=== PATIENT | female | born 1975 | race Caucasian/White ===

== ENCOUNTER 2019-12-20 14:29 | Observation (INO) ==
--- NOTE | 2019-12-20 15:06 | Emergency Department Note ---
History of Present Illness General Chief complaint: Chest Pain Stated complaint: CHEST PAIN Time Seen by Provider: 12/20/19 14:48 Source: patient History of Present Illness Provider complaint: Chest pain Onset (ago): day(s) Location: chest and left Radiation: neck Pain Consistency: + intermittent Maximum Pain Intensity: 4 Quality: + other (Squeezing and tightness) Exacerbated By: + other (Exertion) Associated symptoms: + shortness of breath; no cough, no fever/chills and no nausea/vomiting This is a 44-year-old female who presents with chest pain. She describes it as a squeezing tight sensation on the left side of her chest. Today it started radiating into her neck. She noticed that 2 days ago she had pain in the left shoulder which then seemed to come down into her chest. She had tingling to her left hand as well. The pain in her chest is worse with exertion such as climbing the stairs. It is associated with shortness of breath. She currently has no chest discomfort. Her pain is intermittent. She denies any fever, cough or cold symptoms, abdominal pain, vomiting, diarrhea, loss of taste or smell, leg swelling or pain or known exposure to COVID-19. The patient does have a history of lupus but denies any history of PE or DVT. She denies any immobilization or leg swelling or pain. She does not take control. She does have a strong family history of heart disease. She states her brother had triple bypass and he is 47 years old. Her grandparents from both sides of the family had heart attacks in their 40s. Home Medications Home Medications Medication Instructions Recorded Confirmed Type amlodipine 2.5 mg tablet 2.5 mg PO HS 05/08/19 12/20/19 History atorvastatin 20 mg tablet 20 mg PO HS 05/08/19 12/20/19 History loratadine 10 mg tablet 10 mg PO QAM 05/08/19 12/20/19 History multivitamin 1 tab PO QAM 05/08/19 12/20/19 History belimumab [Benlysta] 200 mg SUBCUT TU 12/20/19 12/20/19 History turmeric 400 mg PO QAM 12/20/19 12/20/19 History Allergies Allergy/AdvReac Type Severity Reaction Status Date / Time codeine AdvReac Mild VOMITING Verified 10/14/20 16:07 Past Med/Surg History Medical History Asthma Congenital dysplasia of left hip Hypercholesterolemia Lupus (systemic lupus erythematosus) Surgical History No pertinent past surgical history Social History Smoking Status: Never smoker Feels Safe at Home: Yes Review of Systems See HPI for pertinent positives & negatives. and A total of 10 systems reviewed and were otherwise negative Physical Exam Vital Signs Vital Signs - 24 hr 12/20/19 14:32 12/20/19 14:52 12/20/19 14:55 Temperature 37.5 C Temperature Source Oral Pulse Rate 94 H 93 H 86 Pulse Rate from SpO2 Sensor 93 H 86 Respiratory Rate 18 22 20 Respiratory Effort / Characteristics Non-Labored Spontaneous Respiratory Depth Normal Blood Pressure 169/89 H 141/83 H Blood Pressure Mean 115 86 Pulse Oximetry 98 98 98 Oxygen Delivery Method Room Air Sepsis Recent Fever Within 48 Hours No Sepsis New/Unexplained Change in Mental Status No Sepsis Action Taken by Nursing No Action Required 12/20/19 15:00 12/20/19 15:01 12/20/19 15:02 Temperature Temperature Source Pulse Rate 97 H 96 H Pulse Rate from SpO2 Sensor 95 H 94 H Respiratory Rate 18 21 Respiratory Effort / Characteristics Respiratory Depth Blood Pressure 119/81 Blood Pressure Mean 95 Pulse Oximetry 95 97 98 Oxygen Delivery Method Room Air Sepsis Recent Fever Within 48 Hours Sepsis New/Unexplained Change in Mental Status Sepsis Action Taken by Nursing Constitutional: Vital signs reviewed. Eyes: Pupils are equal round reactive to light. Conjunctiva are noninjected. ENT: Pharynx is clear without erythema or exudate. Mucous membranes are moist. Neck supple without meningeal signs. Respiratory: Clear to auscultation bilaterally. Breath sounds are equal bilaterally. Cardiovascular: Regular rate and rhythm. No rubs or gallops. GI: Soft, nondistended and nontender. Bowel sounds are present. Musculoskeletal: No peripheral edema. No lower extremity tenderness. Integumentary: No cyanosis. or jaundice. Neurological: The patient is awake and alert. No focal deficits. Psychiatric: Normal affect. Not anxious appearing. Course Administered Medications Discontinued Medications Aspirin (Aspirin Chew 324 Mg) 324 mg PO NOW STA Stop: 12/20/19 16:18 Last Admin: 12/20/19 16:28 Dose: 324 mg Documented by: [id number] Nitroglycerin (Nitroglycerin 2% Ointment 30gm Tube) 0.5 inch EXT NOW ONE Stop: 12/20/19 16:18 Last Admin: 12/20/19 16:28 Dose: 0.5 inch Documented by: [id number] Medical Decision Making Differential Diagnosis Unstable angina, NM, pleurisy, GERD, pericarditis Medical Records Attestation: I reviewed the patient's medical records. I did perform a limited focused review of portions of the patient's old chart on the electronic medical record. The patient has had no recent pertinent visits to this hospital. She did have a negative COVID-19 test last month. Home Medications Current Medication List: was personally reviewed by me Laboratory Data Attestation: I reviewed the patient's lab results. Result diagrams: 12/20/19 14:45 12/20/19 14:45 Lab Results 12/20/19 12/20/19 12/20/19 Range/Units 14:45 14:45 14:45 WBC 8.61 (4.8-10.8) K/uL RBC 4.77 (4.2-5.4) M/uL Hgb 14.9 (12.0-16.0) g/dL Hct 44.5 (37-47) % MCV 93.3 (80-100) fL MCH 31.2 (25-34) pg MCHC 33.5 (32-36) g/dL RDW Std Deviation 41.7 (36.4-46.3) fL RDW Coeff of Teodoro 12.2 (11.5-14.5) % Plt Count 262 (130-400) K/uL MPV 10.9 H (7.4-10.4) fL Immature Gran % (Auto) 0.0 % Neut % (Auto) 69.7 % Lymph % (Auto) 22.0 % [place] % (Auto) 6.9 % Eos % (Auto) 1.2 % Baso % (Auto) 0.2 % Neut # (Auto) 6.01 (1.4-6.5) K/uL Lymph # (Auto) 1.89 (1.2-3.4) K/uL [place] # (Auto) 0.59 (0.11-0.59) K/uL Eos # (Auto) 0.10 (0-0.5) K/uL Baso # (Auto) 0.02 (0-0.2) K/uL Immature Gran # (Auto) 0.00 (0.00-0.02) K/uL PT 10.7 (9.0-12.0) Seconds INR 1.0 (0.9-1.1) APTT 27.3 (21.0-31.0) Seconds PTT Ratio 1.0 Sodium (136-145) mmol/L Potassium (3.5-5.1) mmol/L Chloride (98-107) mmol/L Carbon Dioxide (21-32) mmol/L Anion Gap (3-11) BUN (7-18) mg/dl Creatinine (0.6-1.2) mg/dl Est Cr Clr Drug Dosing ml/min Est GFR ( Amer) Est GFR (Non-Af Amer) BUN/Creatinine Ratio (10-20) Glucose (70-99) mg/dl Calcium (8.5-10.1) mg/dl Total Bilirubin (0.2-1) mg/dl AST (15-37) U/L ALT (12-78) U/L Alkaline Phosphatase (45-117) U/L Troponin I < 0.015 (0-0.045) ng/ml Total Protein (6.4-8.2) gm/dl Albumin (3.4-5.0) gm/dl Globulin (2.5-4.0) gm/dl Albumin/Globulin Ratio (0.9-2) 12/19/20 Range/Units 14:45 WBC (4.8-10.8) K/uL RBC (4.2-5.4) M/uL Hgb (12.0-16.0) g/dL Hct (37-47) % MCV (80-100) fL MCH (25-34) pg MCHC (32-36) g/dL RDW Std Deviation (36.4-46.3) fL RDW Coeff of Teodoro (11.5-14.5) % Plt Count (130-400) K/uL MPV (7.4-10.4) fL Immature Gran % (Auto) % Neut % (Auto) % Lymph % (Auto) % [place] % (Auto) % Eos % (Auto) % Baso % (Auto) % Neut # (Auto) (1.4-6.5) K/uL Lymph # (Auto) (1.2-3.4) K/uL [place] # (Auto) (0.11-0.59) K/uL Eos # (Auto) (0-0.5) K/uL Baso # (Auto) (0-0.2) K/uL Immature Gran # (Auto) (0.00-0.02) K/uL PT (9.0-12.0) Seconds INR (0.9-1.1) APTT (21.0-31.0) Seconds PTT Ratio Sodium 141 (136-145) mmol/L Potassium 3.7 (3.5-5.1) mmol/L Chloride 109 H (98-107) mmol/L Carbon Dioxide 27 (21-32) mmol/L Anion Gap 5.0 (3-11) BUN 14 (7-18) mg/dl Creatinine 0.74 (0.6-1.2) mg/dl Est Cr Clr Drug Dosing 115.0 ml/min Est GFR ( Amer) 114.2 Est GFR (Non-Af Amer) 98.5 BUN/Creatinine Ratio 18.4 (10-20) Glucose 140 H (70-99) mg/dl Calcium 8.9 (8.5-10.1) mg/dl Total Bilirubin 0.3 (0.2-1) mg/dl AST 13 L (15-37) U/L ALT 17 (12-78) U/L Alkaline Phosphatase 75 (45-117) U/L Troponin I (0-0.045) ng/ml Total Protein 7.0 (6.4-8.2) gm/dl Albumin 3.1 L (3.4-5.0) gm/dl Globulin 3.9 (2.5-4.0) gm/dl Albumin/Globulin Ratio 0.8 L (0.9-2) Imaging Data Radiologist's Impression: SINGLE VIEW CHEST CLINICAL HISTORY: Atypical chest pain. FINDINGS: An AP, portable, upright chest radiograph is obtained. No prior studies are available for comparison at the time of dictation. The cardiomediastinal silhouette is unremarkable. The lungs and pleural spaces are clear. No pneumothorax is seen. The bony thorax is grossly intact. IMPRESSION: No active disease in the chest. ACT 112: Negative or not required by law. Electronically signed by: Mikey Viera M.D. 12/20/2019 3:10 PM Dictated: 12/20/191508 Transcribed: 12/20/191508 ECG Data Attestation: I personally reviewed and interpreted this ECG as follows: Indication: + chest pain Rate (beats per minute): 84 Rhythm: + normal sinus ECG [place]: + Normal ECG ST segments: no ST elevation ECG Findings: no PVCs MDM Narrative I did evaluate the patient as noted above. IV access was established. I did place an order for continuous cardiac monitoring. The monitor showed normal sinus rhythm at a rate of 92 bpm. I did order and personally review the patient's 12-lead EKG as described above. She has no acute ischemia on twelve- lead EKG. I did order and personally reviewed the images of the patient's chest x-ray as described above. There is no evidence of acute process within the heart or lungs. I did order and review the patient's blood work as noted in the electronic medical record. CBC and electrolytes are unremarkable. Troponin is negative. I did reassess the patient. I did discuss the test results with the patient. She stated earlier that she had no chest discomfort but now states that she has had some heaviness. I therefore treated her with nitroglycerin p aste as well as an aspirin. I did recommend hospitalization. I did discuss the case with the case managers and Dr. Salcido who has assumed care. Impression & Plan Chest pain, exertional Discharge Plan Visit Data Chief Complaint: Chest Pain Stated Complaint: CHEST PAIN ED Provider: Abran Giang Discharge Problem: Chest pain, exertional Patient Disposition: Being Evaluated by Hospitalist Forms Stand Alone Forms: My [facility] Prescriptions Prescriptions: No Action amlodipine [Norvasc] 2.5 mg tablet 2.5 mg PO HS RF: 0 atorvastatin [Lipitor] 20 mg tablet 20 mg PO HS RF: 0 multivitamin [Daily Multi-Vitamin] Tablet 1 tab PO QAM RF: 0 loratadine [Claritin] 10 mg tablet 10 mg PO QAM RF: 0 Benlysta 200 mg/mL auto-injector 200 mg SUBCUT TU RF: 0 turmeric 400 mg Capsule 400 mg PO QAM RF: 0 Referrals Referrals: Alan Kaur [Primary Care Provider] -
[2019-12-20 15:10] LABS: Basophils # (auto) 0.02 K/uL (0-0.2); Basophils % (auto) 0.2 %; Eosinophils % (auto) 1.2 %; Hematocrit (blood only) 44.5 % (37-47); Hemoglobin 14.9 g/dL (12.0-16.0); Lymphocytes # (auto) 1.89 K/uL (1.2-3.4); Mean Corpuscular Hemoglobin 31.2 pg (25-34); Mean Corpuscular Hgb Conc 33.5 g/dL (32-36); Mean Corpuscular Volume 93.3 fL (80-100); Mean Platelet Volume 10.9 fL (7.4-10.4); Monocytes # (auto) 0.59 K/uL (0.11-0.59); Monocytes % (auto) 6.9 %; Neutrophils # (auto) 6.01 K/uL (1.4-6.5); Neutrophils % (auto) 69.7 %; Platelet Count 262 K/uL (130-400); RDW Coefficient of Variation 12.2 % (11.5-14.5); RDW Standard Deviation 41.7 fL (36.4-46.3); Red Blood Count 4.77 M/uL (4.2-5.4); White Blood Count 8.61 K/uL (4.8-10.8)
--- NOTE | 2019-12-20 15:11 | XRay Report ---
SINGLE VIEW CHEST CLINICAL HISTORY: Atypical chest pain. FINDINGS: An AP, portable, upright chest radiograph is obtained. No prior studies are available for c omparison at the time of dictation. The cardiomediastinal silhouette is unremarkable. The lungs and pleural spaces are clear. No pneumothorax is seen. The bony thorax is grossly intact. IMPRESSION: No active disease in the chest. ACT 112: Negative or not required by law. Electronically signed by: Mikey Viera M.D. 12/20/2019 3:10 PM
[2019-12-20 15:24] LABS: Partial Thromboplastin Time 27.3 Seconds (21.0-31.0); Prothrombin Time 10.7 Seconds (9.0-12.0)
[2019-12-20 15:35] LABS: Albumin Level 3.1 gm/dl (3.4-5.0); BUN Creatinine Ratio 18.4 (10-20); Calcium 8.9 mg/dl (8.5-10.1); Est GFR (African American) 114.2; Est GFR (Non-African American) 98.5; Potassium 3.7 mmol/L (3.5-5.1)
[2019-12-20 15:40] LABS: Albumin Globulin Ratio 0.8 (0.9-2); Bilirubin,Total 0.3 mg/dl (0.2-1); Globulin 3.9 gm/dl (2.5-4.0)
[2019-12-20] MEDS ORDERED: ASPIRIN CHEW 324 MG PO STA (16:17)
[2019-12-20] MEDS ORDERED: NITROGLYCERIN 2% OINTMENT 30GM TUBE EXT ONE (16:17)
--- NOTE | 2019-12-20 16:58 | History & Physical Report ---
Date of Service December 20, 2019 Assessment & Plan (1) Chest pain, exertional: D-dimer negative. Atypical chest pain given duration. Not typical of pericarditis as non positional Possible pleuritis given worse with inspiration in ER and SLE diagnosis. ASA 324mg PO given in ER. Continue 81mg PO daily. Serial troponins to rule out ACS given strong family history of hyperlipidemia. EKG unremarkable. TTE Reassuring stress echo in October 2018. Would consider repeating since it has been > 1 year given strong family history. (2) Neuropathy of left upper extremity: Positive Spurling's test on left side. No further work-up recommended at this stage as no prior trauma. Consider physical therapy as an outpatient. (3) Hypercholesterolemia: Continue atorvastatin 20 mg p.o. at bedtime Lipid panel in a.m. (4) Lupus (systemic lupus erythematosus): Continue Benlysta. Admission and Anticipated Discharge Date Admission Date: 12/20/2019 History of Present Illness Chief Complaint: Chest pain Primary Care Provider: Alan Kaur Ayleen Vigil is a 44-year-old female with systemic lupus erythematosus who presents to the ER with ongoing chest pain on exertion. Initial pain fell 2 days previously in her left shoulder. This was mainly on exertion. Yesterday this morning her chest and today has been associated with shortness of breath and pain in her left arm and neck. Associated dizziness and nausea. No diaphoresis. Her pain today has been constant since waking up at 6:30 AM. She describes an intermittent more severe pain but currently experiencing more of a chest pressure. She was given a nitro patch in the ER but currently has not changed her pain significantly since placing this 30 minutes ago. Although she has had pain all day worse on exertion this pain became much suddenly more severe around 1 to 1:30 PM. She has a significant history of SLE and hyperlipidemia for which she takes atorvastatin. She has a strong family history of cardiovascular disease with brother having a quadruple bypass at age 47. In addition she has 2 grandparents who in her 40s of a myocardial infarction. She does not take a daily aspirin. No history of gastroesophageal reflux disease. In the ER she was given aspirin 324 mg p.o. and a 0.5 inch nitro patch without significant relief of her symptoms. Allergies Allergy/AdvReac Type Severity Reaction Status Date / Time codeine AdvReac Mild VOMITING Verified 12/20/19 16:07 Home Medications Home Medications Medication Instructions Recorded Confirmed Type amlodipine 2.5 mg tablet 2.5 mg PO HS 05/08/19 12/20/19 History atorvastatin 20 mg tablet 20 mg PO HS 05/08/19 12/20/19 History loratadine 10 mg tablet 10 mg PO QAM 05/08/19 12/20/19 History multivitamin 1 tab PO QAM 05/08/19 12/20/19 History belimumab [Benlysta] 200 mg SUBCUT TU 12/20/19 12/20/19 History turmeric 400 mg PO QAM 12/20/19 12/20/19 History Past Med/Surg History Medical History Asthma Congenital dysplasia of left hip Hypercholesterolemia Lupus (systemic lupus erythematosus) Surgical History No pertinent past surgical history Social History Smoking Status: Never smoker Hx Substance Use: No Preferred Language: Uzbek Communication Ability: Effective Local [employer] Required: No Beliefs That Will Affect Care: None Current Living Situation: Spouse Other Information That Helps Us Care for You: No Feels Safe at Home: Yes Safety Concerns: Feels Safe At This Time Assistive Devices: None Review of Systems Review of Systems: All systems reviewed & are unremarkable except as noted in HPI & below Physical Exam Constitutional: well developed and well nourished; no acute distress Eyes: PERRL, conjunctivae normal, anicteric sclerae ENMT: external ear and nose normal, oropharynx normal Neck: trachea midline, no thyromegaly Respiratory: normal respiratory effort, lungs clear to auscultation Cardiovascular: RRR, no murmur, no edema Gastrointestinal (Abdomen): normal bowel sounds, soft, nontender, no hepat osplenomegaly Musculoskeletal: no cyanosis or clubbing, extremities motor strength 5/5 Skin: no rashes, warm and dry Neurologic: moves all extremities and awake; no focal motor deficits and not confused Speech / Cognition: normal speech Motor/Sensory: no tremor, no pronator drift and no sensory deficit Spurling positive on left side Psychiatric: A+Ox3, euthymic affect Lymphatic: no cervical or axillary lymphadenopathy Results & Data Results & Data ([facility]) Vital Signs (Past 12 Hours) Vital Signs Temp Pulse Resp BP Pulse Ox 12/20/19 15:02 98 12/20/19 15:01 96 H 21 97 12/20/19 15:00 97 H 18 119/81 95 12/20/19 14:55 86 20 98 12/20/19 14:52 93 H 22 141/83 H 98 12/20/19 14:32 37.5 C 94 H 18 169/89 H 98 Diagnostic Findings SINGLE VIEW CHEST IMPRESSION: No active disease in the chest. ECG Indication: chest pain Rate (beats per minute): 84 Rhythm: normal sinus Change: no significant change Code Status & VTE Plan Code Status Full VTE Prophylaxis Plan VTE Prophylaxis will be ordered: No PG Care Time/CCT Total # of Minutes Spent Total Time Spent with Patient: Total time spent is greater than 50% in coordination of care (as documented) at patient's floor/unit and/or counseling patient: Coding Level of Care Code 33757 OBS Care - Level 3 Diagnoses Chest pain, exertional R07.9 Neuropathy of left upper extremity G56.92 Hypercholesterolemia E78.00 Lupus (systemic lupus erythematosus) M32.9
[2019-12-20 17:46] LABS: D Dimer 360 ug/L FEU (0-500)
[2019-12-20] MEDS ORDERED: ACETAMINOPHEN 325 MG TAB PO PRN (19:42)
[2019-12-20] MEDS ORDERED: ONDANSETRON INJ 2 MG/ML 2 ML VIAL IV PRN (19:42)
[2019-12-20] MEDS ORDERED: NITROGLYCERIN 2% OINTMENT 30GM TUBE EXT SCH (20:30)
[2019-12-20] MEDS: NITROGLYCERIN 2% OINTMENT 30GM TUBE EXT SCH ×3 (20:31→20:40)
[2019-12-20] MEDS ORDERED: MoRPHine SULFATE 2 MG/ML CARP IV PRN (20:32)
[2019-12-20] MEDS ORDERED: ATORVASTATIN 20 MG TAB PO SCH (21:00)
[2019-12-20] MEDS ORDERED: amLODIPine BESYLATE 5 MG TAB PO SCH (21:00)
[2019-12-20] MEDS ORDERED: Nursing to Pharmacy Communication SCH (23:45)
[2019-12-21] MEDS: NITROGLYCERIN 2% OINTMENT 30GM TUBE EXT SCH ×2 (02:52→08:40)
--- NOTE | 2019-12-21 05:39 | Electrocardiogram Report ---
Test Reason : Blood Pressure : / mmHG Vent. Rate : 084 BPM Atrial Rate : 084 BPM P-R Int : 134 ms QRS Dur : 076 ms QT Int : 360 ms P-R-T Axes : 033 027 055 degrees QTc Int : 425 ms Normal sinus rhythm Normal ECG No previous ECGs available Confirmed by Eriberto Cash ([id number]) on 12/21/2019 5:39:27 AM Referred By: REFERRED SELF Confirmed By:Eriberto Cash
[2019-12-21 06:26] LABS: Basophils # (auto) 0.02 K/uL (0-0.2); Basophils % (auto) 0.3 %; Eosinophils # (auto) 0.14 K/uL (0-0.5); Hematocrit (blood only) 39.1 % (37-47); Hemoglobin 12.9 g/dL (12.0-16.0); Immature Granulocytes # (auto) 0.01 K/uL (0.00-0.02); Immature Granulocytes % (auto) 0.1 %; Lymphocytes # (auto) 1.55 K/uL (1.2-3.4); Lymphocytes % (auto) 21.6 %; Mean Corpuscular Hemoglobin 30.9 pg (25-34); Mean Corpuscular Volume 93.8 fL (80-100); Mean Platelet Volume 10.9 fL (7.4-10.4); Monocytes # (auto) 0.73 K/uL (0.11-0.59); Monocytes % (auto) 10.2 %; Neutrophils # (auto) 4.72 K/uL (1.4-6.5); Neutrophils % (auto) 65.8 %; Platelet Count 239 K/uL (130-400); RDW Coefficient of Variation 12.6 % (11.5-14.5); RDW Standard Deviation 42.8 fL (36.4-46.3); Red Blood Count 4.17 M/uL (4.2-5.4); White Blood Count 7.17 K/uL (4.8-10.8)
[2019-12-21 07:17] LABS: BUN Creatinine Ratio 19.6 (10-20); Blood Urea Nitrogen 13 mg/dl (7-18); Calcium 8.8 mg/dl (8.5-10.1); Carbon Dioxide 28 mmol/L (21-32); Chloride 110 mmol/L (98-107); Est GFR (African American) 125.8; Est GFR (Non-African American) 108.5; Glucose 101 mg/dl (70-99); Potassium 3.8 mmol/L (3.5-5.1); Sodium 142 mmol/L (136-145)
[2019-12-21 07:21] LABS: Chol HDL Ratio 3; Cholesterol 172 mg/dl (0-200); HDL Cholesterol 53 mg/dl; LDL Cholesterol Calculated 104 mg/dl; Triglycerides 75 mg/dl (0-150); Troponin I < 0.015 ng/ml (0-0.045); VLDL Cholesterol 15 mg/dl
[2019-12-21 08:07] LABS: Estimated Average Glucose 111 mg/dl; Hemoglobin A1C 5.5 % (4.5-5.6)
[2019-12-21] MEDS ORDERED: NON-FORMULARY MEDICATION (Turmeric 400 MG) PO SCH (09:00)
[2019-12-21] MEDS ORDERED: MULTIVITAMIN TAB PO SCH (09:00)
[2019-12-21] MEDS ORDERED: LORATADINE 10 MG TAB PO SCH (09:00)
[2019-12-21] MEDS ORDERED: ASPIRIN 81 MG ECTAB PO SCH (09:00)
--- NOTE | 2019-12-21 11:51 | XCELERA ---
[id number]
--- NOTE | 2019-12-21 15:55 | Discharge Summary ---
Date of Service December 21, 2019 Admission HPI Per Admitting Provider Ayleen Vigil is a 44-year-old female with systemic lupus erythematosus who presents to the ER with ongoing chest pain on exertion. Initial pain fell 2 days previously in her left shoulder. This was mainly on exertion. Yesterday this morning her chest and today has been associated with shortness of breath and pain in her left arm and neck. Associated dizziness and nausea. No diaphoresis. Her pain today has been constant since waking up at 6:30 AM. She describes an intermittent more severe pain but currently experiencing more of a chest pressure. She was given a nitro patch in the ER but currently has not changed her pain significantly since placing this 30 minutes ago. Although she has had pain all day worse on exertion this pain became much suddenly more severe around 1 to 1:30 PM. She has a significant history of SLE and hyperlipidemia for which she takes atorvastatin. She has a strong family history of cardiovascular disease with brother having a quadruple bypass at age 47. In addition she has 2 grandparents who in her 40s of a myocardial infarction. She does not take a daily aspirin. No history of gastroesophageal reflux disease. In the ER she was given aspirin 324 mg p.o. and a 0.5 inch nitro patch without significant relief of her symptoms. Principal Diagnosis Non-cardiac chest pain Discharge Exam Constitutional WD/WN, vitals as above Eyes EOM intact bilaterally; no conjunctival abnormality ENMT external ear and nose normal, oropharynx normal Neck trachea midline, no thyromegaly normal visual inspection Respiratory normal respiratory effort, lungs clear to auscultation no respiratory distress Cardiovascular RRR, no murmur, no edema Gastrointestinal (Abdomen) Inspection/Auscultation: abdomen normal to inspection; abdomen not distended Musculoskeletal no cyanosis or clubbing, extremities motor strength 5/5 Skin no rashes, warm and dry Neurologic moves all extremities and awake Psychiatric Orientation: alert, oriented to person and cooperative Discharge Data Allergies Allergy/AdvReac Type Severity Reaction Status Date / Time codeine AdvReac Mild VOMITING Verified 12/20/19 16:07 Consultations 12/20/19 16:17 ED Decision to Admit Stat Hospital Course (1) Chest pain, exertional: D-dimer negative. Atypical chest pain given duration. Not typical of pericarditis as non-positional. - Troponins negative x 3 - TTE on 12/20 showed good EF and no pericarditis or pericardial effusion. There was mild RV dilation; however, I discussed this with Dr. Cash, and it was within 1 mm of normal and was stable from her prior echo in 09/2018 during her stress echo. Likely just positioning or slight different her normal anatomy. No indication of RV strain for PE and no indication of COPD or MAURIZIO (STOP-BANG score of 1; low risk). No indication on CXR of any sort of ILD from her lupus. (2) Neuropathy of left upper extremity: Positive Spurling's test on left side. No further work-up recommended at this stage as no prior trauma. - Consider physical therapy as an outpatient. (3) Hypercholesterolemia: Continue atorvastatin 20 mg p.o. at bedtime - LDL was 104; outpatient adjustment as needed. (4) Lupus (systemic lupus erythematosus): Continue Benlysta. Total Time Total Time Spent Total Time Spent (In Minutes): 35 Discharge Plan Discharge Items Patient Disposition: Home - Self-Care Reason For Visit: CHEST PAIN RULE OUT LA Discharge Diagnosis: Chest pain - Non-cardiac in nature Activity: Resume your previous activity Non-emergency contact: Primary Care Provider and Specialist Call non-emergency contact if: your symptoms worsen Follow-up/Referrals: Alan Kaur [Primary Care Provider] - 12/25/19 2:30 pm (You have an E visit appt set for Sunday 12/24 @ 230p. It is important that you keep this appt, if it does not fit your schedule please call [phone] to reschedule. ) Diet: Regular Addtl Attending Provider Instructions: Melva Musa, You were admitted to the hospital with chest pain. Luckily, we tested your cardiac enzymes (called troponins) and they were negative/normal. This is great because it means you did NOT have a heart attack. Additionally, we did an ultrasound of your heart which showed your heart is squeezing normally and that your heart valves look good. This is also great! It also did not show any fluid or irritation in or around the lining of your heart (also called pericarditis or a pericardial effusion). This is also good and again gives your heart a clean bill of health. You had a normal stress test in September 2018, and we do not feel that another stress in the hospital would be beneficial. If you have further concerns about your heart, you can discuss having a "coronary artery calcium score" done. [facility] CT scanners in the hospital cannot do them, so you would have to investigate if [facility] has the ability to do so locally if this is something you wish to pursue. If you have further chest pain, you can try some stretching, ibuprofen/acetaminophen, hot/cold compresses, or even some Tums/Maalox if you feel it may be heart burn. Please follow up with your PCP in the next 1-2 weeks to see how you are doing. Pending Studies at Discharge: No Stand-Alone Forms: My [facility], Smoking Cessation Medications and DC Order Prescriptions: Continued amlodipine [Norvasc] 2.5 mg tablet 2.5 mg PO HS RF: 0 atorvastatin [Lipitor] 20 mg tablet 20 mg PO HS RF: 0 multivitamin [Daily Multi-Vitamin] Tablet 1 tab PO QAM RF: 0 loratadine [Claritin] 10 mg tablet 10 mg PO QAM RF: 0 Benlysta 200 mg/mL auto-injector 200 mg SUBCUT TU RF: 0 turmeric 400 mg Capsule 400 mg PO QAM RF: 0 Discharge Orders: Discharge Order (Routine); Ordered 12/21/19 Ordered By: Sukhjinder Hudson Admission Data Admit Date/Time: 12/20/19 17:26 Attending Provider: Sukhjinder Hudson Admit Provider: Jon Salcido Primary Care Provider: Alan Kaur Other Providers: Sukhjinder Hudson Other Interventions: Discharge Summary Assessment (RN) Last Done: 12/21/19 14:07 Coding Level of Care Code 52570 OBS Care - Discharge Diagnoses Chest pain, exertional R07.9 Neuropathy of left upper extremity G56.92 Hypercholesterolemia E78.00 Lupus (systemic lupus erythematosus) M32.9
== END 2019-12-21 14:42 | disposition home or self-care (01) ==
LOC: ED 14:29 → 2N 14:29 → SUATTDRO 17:26 → 2N 18:59